=== PATIENT | female | born 1980 | race Caucasian/White ===

== ENCOUNTER 2021-05-13 06:45 | Emergency (ER) | payer OTHER ==
[2021-05-13] MEDS ORDERED: Lidocaine 1% 30 ML SDV INJECT ONE (07:02)
--- NOTE | 2021-05-13 09:31 | CR ---
[id number] RAD/RAD Fingers Right EXAM: RAD Fingers Right INDICATION: POST REDUCTION. COMPARISON: 6:57 AM same date. DISCUSSION: Interval reduction of a fourth proximal interphalangeal joint dislocation. Possible tiny fracture off the ulnar aspect of the fourth proximal phalanx head. Fourth digit soft tissue swelling. IMPRESSION: 1. Successful reduction of a fourth proximal interphalangeal joint dislocation. There may be a tiny fracture of uncertain age off the ulnar aspect of the proximal fourth phalanx head. Marcelo Kimbrough MD 05/13/21 0929 Thank you for allowing us to participate in the care of your patient.
--- NOTE | 2021-05-13 09:32 | CR ---
[id number] RAD/RAD Fingers Right EXAM: RAD Fingers Right INDICATION: FELL DOWN STAIRS, PAIN TO 4TH DIGIT RIGHT HAND. COMPARISON: None. DISCUSSION: Posterior-ulnar dislocation of the middle fourth phalanx. Mild irregularity of the middle phalanx base centrally. No other evident osseous abnormality. IMPRESSION: 1. Fourth PIP dislocation. Marcelo Kimbrough MD 05/13/21 0930 Thank you for allowing us to participate in the care of your patient.
--- NOTE | 2021-05-14 15:02 | EDM.PDOC ---
ED HPI GENERAL MEDICAL PROBLEM - General Chief Complaint: Upper Extremity Injury/Pain Stated Complaint: FALL / INJURY TO FOURTH FINGER ON RIGHT HAND Time Seen by Provider: 05/13/21 06:47 Source of Information: Reports: Patient History Limitations: Reports: No Limitations - History of Present Illness INITIAL COMMENTS - FREE TEXT/NARRATIVE: Pt. presents to ER with complaints of injury to 4th digit of R hand. Pt. states that she was sleep walking and she fell. Denies any injury elsewhere. She states that this happened several hours before coming in to ER. Pt. denies and discomfort to the hand, wrist, or rest of R upper extremity. CMS intact. Onset: Today Onset Date: 05/13/21 Location: Reports: Upper Extremity, Right Quality: Reports: Throbbing Severity: Moderate Treatments FASHION MODEL: Reports: Cold Therapy Right Finger-Ring Pain Score (Numeric/FACES): 3 - Related Data Allergies Allergy/AdvReac Type Severity Reaction Status Date / Time No Known Allergies Allergy Verified 05/13/21 08:00 Home Meds: Home Meds . [Unable to Verify Home Med List] 05/13/21 [History] Social & Family History - Tobacco Use Tobacco Use Status *Q: Never Tobacco User - Recreational Drug Use Recreational Drug Use: No Review of Systems - Review of Systems Review Of Systems: Comprehensive ROS is negative, except as noted in HPI. ED EXAM, GENERAL - Physical Exam Exam: See Below Exam Limited By: No Limitations General Appearance: Alert, WD/WN, No Apparent Distress Extremities: Other (Obvious defomity to 4th digit of R hand. No open areas. CMS intact.) ED TRAUMA EXTREMITY PROCEDURES - Joint Reduction Right Fingers Sedation: Digital Block Local Anesthesia - Lidocaine (Xylocaine): 1% Plain Local Anesthetic Volume: 3cc Pre-Procedure NV Status: Normal Post-Procedure NV Status: Normal Technique: Traction/Counter Traction Number of Attempts: 1 Post-Reduction Imaging: Completely Reduced Joint Reduction Complications: No - Splinting Left Upper Extremity Pre-Procedure NV Status: Normal Post-Procedure NV Status: Normal Splint Material: Fiberglass Splint Design: Volar Applied & Form Fitted By: Provider, Nurse Provider Post-Splint Application NV Check: NV Status Normal, Good Position Complications: No Progress/Comments: Finger was fawad taped as well prior to placement of splint. Course - Vital Signs Last Recorded V/S: Last Vital Signs Temp 36.9 C 07/17/21 08:01 Pulse 88 05/13/21 08:01 Resp 17 05/13/21 08:01 BP 119/76 05/13/21 08:01 Pulse Ox 98 05/13/21 08:01 - Orders/Labs/Meds Meds: Medications Discontinued Medications Generic Name Dose Route Start Last Admin Trade Name Kamilla PRN Reason Stop Dose Admin Lidocaine HCl 30 ml 05/13/21 07:02 05/13/21 07:15 Lidocaine 1% 30 Ml Sdv INJECT 05/13/21 07:03 30 ml ONETIME ONE Administration Departure - Departure Time of Disposition: 09:15 Disposition: Home, Self-Care 01 Clinical Impression: Dislocation, finger closed - Discharge Information Instructions: Finger or Thumb Dislocation, [id number], Cast or Splint Care, Adult, [id number] Referrals: Lorrie Priest MD [Primary Care Provider] - Forms: ED Department Discharge Additional Instructions: I spoke with Dr. Ortega from orthopedics. He would like you see you see hand surgery in 7-10 days. Call [phone] on Saturday AM to set up an appointment for this. Keep splint on. Ibuprofen 200mg 3 tabs every 6 hours as needed for pain. You can also ice your hand for 15 min every hour as needed for pain as well. Sepsis Event Note (ED) - Evaluation Sepsis Screening Result: No Definite Risk - Problem List Review Problem List Initiated/Reviewed/Updated: Yes - Assessment/Plan Plan: I spoke with Dr. Ortega from orthopedics. He would like you see you see hand surgery in 7-10 days. Call [phone] on Saturday AM to set up an appointment for this. Keep splint on. Ibuprofen 200mg 3 tabs every 6 hours as needed for pain. You can also ice your hand for 15 min every hour as needed for pain as well.
== END 2021-05-13 08:40 | disposition home or self-care (01) ==
LOC: VM.ED 06:45
DX: S63.254A Unspecified dislocation of right ring finger, initial encounter (principal); W10.9XXA Fall (on) (from) unspecified stairs and steps, initial encounter
CPT/HCPCS: 26770; 73140-F8; 99283; 99283-25

== ENCOUNTER 2025-02-01 18:31 | Emergency (ER) | payer OTHER ==
[2025-02-01] MEDS: Ibuprofen 200 MG Tab PO ONE (18:49)
== END 2025-02-01 20:15 | disposition home or self-care (01) ==
LOC: VM.ED 18:31
DX: S82.61XA Displaced fracture of lateral malleolus of right fibula, initial encounter for closed fracture (principal); W10.9XXA Fall (on) (from) unspecified stairs and steps, initial encounter; Y93.89 Activity, other specified
CPT/HCPCS: 73610-RT; 73630-LT; 99283; A9270-GY